=== PATIENT | female | born 1950 | race Caucasian/White ===

== ENCOUNTER 2022-01-16 01:29 | Inpatient (IN) ==
[2022-01-16] MEDS ORDERED: Ondansetron 4 MG/2 ML VIAL IVP PRN (02:49)
[2022-01-16] MEDS ORDERED: 0.9 % Sodium Chloride 1,000 ML IVC ONE ×2 (02:49→04:41)
[2022-01-16] MEDS ORDERED: Iopamidol - 370 500 ML MLS IVP ONE (04:09)
[2022-01-16 04:10] LABS: Influenza A PCR Negative (Negative); Influenza B PCR Negative (Negative); Resp. Syncytial Virus PCR Negative (Negative); SARS-CoV-2 by PCR (In House) Negative (Negative)
[2022-01-16 04:16] LABS: Basophils % 0.1 %; Hematocrit 46.4 % (35.3-44.9); Hemoglobin 15.1 g/dL (11.5-15.4); Immature Granulocytes % 0.5 % (0-4); Lymphocytes # 0.9 K/mcL (0.6-4.6); Lymphocytes % 4.9 %; Mean Corpuscular HGB Conc 32.5 g/dL (31.6-35.5); Mean Corpuscular Hemoglobin 32.5 pg (28.0-33.3); Mean Platelet Volume 9.2 fL (9.4-12.4); Monocytes # 1.4 K/mcL (0.0-1.3); Monocytes % 7.9 %; Neutrophils # 15.3 K/mcL (1.6-8.9); Platelet Count 302 K/mcL (140-400); Red Blood Count 4.64 M/mcL (3.82-4.97); Red Cell Distribution Width 13.2 % (11.5-14.5); Segmented Neutrophils % 86.6 %; White Blood Count 17.7 K/mcL (4.3-11.1)
[2022-01-16] MEDS ORDERED: Piperacillin/Tazobactam 3.375 GM in 0.9 % Sodium Chloride Mini Bag 100 ML IVPB ONE (04:50)
[2022-01-16] MEDS ORDERED: Pantoprazole 40 MG VIAL IVP ONE (04:51)
[2022-01-16 04:58] LABS: Alanine Aminotransferase 5 Units/L (7-52); Albumin 3.8 g/dL (3.5-5.7); Albumin/Globulin Ratio 1.2 (1.1-2.2); Alkaline Phosphatase 99 Units/L (34-104); Aspartate Amino Transferase 13 Units/L (13-39); BUN/Creatinine Ratio 10 (6-26); Bilirubin,Total 0.4 mg/dL (0.3-1.0); Blood Urea Nitrogen 25 mg/dL (8-23); Calcium 8.5 mg/dL (8.6-10.3); Carbon Dioxide 14 mEq/L (23-29); Chloride 106 mEq/L (98-107); Globulin 3.1 g/dL (2.4-3.5); Glucose 170 mg/dL (70-105); Magnesium 1.8 mg/dL (1.6-2.6); Osmolality,Calculated 296 (280-300); Potassium 3.5 mEq/L (3.5-5.1); Sodium 139 mEq/L (136-145); Total Protein 6.9 g/dL (6.4-8.9); Troponin I < 0.03 ng/mL (< 0.04)
[2022-01-16] MEDS ORDERED: Vancomycin Oral Soln 125 MG/2.5 ML UDC PO ONE (05:10)
[2022-01-16 05:38] LABS: Bacteria,Urine Few per hpf (None-Few); Bilirubin,Urine Small (Negative); Blood,Urine Trace (Negative); Budding Yeast,Urine Few per hpf (None Seen); Clarity,Urine Ex.Turbid (Clear); Color,Urine Yellow (Yellow); Glucose,Urine (UA) 30 mg/dL (Normal); Hyaline Casts,Urine Many per lpf (None Seen); Ketones,Urine Trace mg/dL (Negative); Leukocyte Esterase,Urine Trace (Negative); Mucus,Urine Many per lpf (None-Few); Nitrite,Urine Negative (Negative); Protein,Urine 200 mg/dL (Neg-Trace); Renal Epithelial Cells,Urine Few per hpf (None-Few); Specific Gravity,Urine 1.023 (1.010-1.025); Squamous Epithelial Cell,Urine Few per hpf (None-Few); WBC,Urine 30-50 per hpf (0-3)
[2022-01-16] MEDS ORDERED: Naloxone 0.4 MG/ML INJ IVP PRN (07:24)
[2022-01-16] MEDS ORDERED: *HR* HYDROcodone/Acet 5/325 mg TABLET PO PRN (09:20)
[2022-01-16] MEDS ORDERED: Acetaminophen 325 MG TABLET PO PRN (09:20)
[2022-01-16] MEDS ORDERED: 0.9 % Sodium Chloride w KCl 40 MEQ/1,000 ML MLS IVC SCH (09:30)
[2022-01-16] MEDS: *HR* HYDROcodone/Acet 10/325 mg TABLET PO PRN (11:56)
[2022-01-16 12:49] LABS: Hematocrit 38.6 % (35.3-44.9); Hemoglobin 12.8 g/dL (11.5-15.4)
[2022-01-16 13:05] LABS: INR 1.1; Prothrombin Time 11.8 Seconds (9.4-12.1)
[2022-01-16] MEDS: Vancomycin Oral Soln 125 MG/2.5 ML UDC PO SCH ×3 (14:52→21:09)
[2022-01-16] MEDS ORDERED: Nicotine 7 MG PATCH.TD24 TD PRN (15:20)
[2022-01-16] MEDS: Ondansetron 4 MG/2 ML VIAL IVP PRN (18:13)
[2022-01-16] MEDS: Piperacillin/Tazobactam 3.375 GM in 0.9 % Sodium Chloride Mini Bag 100 ML IVPB SCH (18:13)
[2022-01-16] MEDS: Pantoprazole 40 MG VIAL IVP SCH (18:13)
[2022-01-17 01:44] LABS: Basophils % 0.2 %; Eosinophils % 0.2 %; Immature Granulocytes % 0.5 % (0-4); Lymphocytes # 3.2 K/mcL (0.6-4.6); Lymphocytes % 20.8 %; Mean Corpuscular HGB Conc 32.6 g/dL (31.6-35.5); Mean Corpuscular Hemoglobin 32.5 pg (28.0-33.3); Mean Corpuscular Volume 99.4 fL (83.0-100.0); Mean Platelet Volume 9.3 fL (9.4-12.4); Monocytes # 1.4 K/mcL (0.0-1.3); Monocytes % 9.4 %; Neutrophils # 10.6 K/mcL (1.6-8.9); Platelet Count 243 K/mcL (140-400); Red Blood Count 3.42 M/mcL (3.82-4.97); Segmented Neutrophils % 68.9 %; White Blood Count 15.3 K/mcL (4.3-11.1)
[2022-01-17 01:58] LABS: Calcium 7.7 mg/dL (8.6-10.3); Potassium 4.1 mEq/L (3.5-5.1)
[2022-01-17 02:06] LABS: Hemoglobin 11.1 g/dL (11.5-15.4)
[2022-01-17 03:14] LABS: C.difficile Toxin A/B Gene PCR Not detected (Not detect); Campylobacter by PCR Not detected (Not detect); Enteroaggregative E.coli(EAEC) Not detected (Not detect); Enteropathogenic E.coli(EPEC) Not detected (Not detect); Enterotoxigenic E.coli (ETEC) Not detected (Not detect); Plesiomonas shigelloides PCR Not detected (Not detect); Salmonella PCR Not detected (Not detect); Vibrio PCR Not detected (Not detect); Vibrio cholerae PCR Not detected (Not detect); Yersinia enterocolitica PCR Not detected (Not detect)
[2022-01-17 03:15] LABS: Adenovirus F 40/41 PCR Not detected (Not detect); Astrovirus PCR Not detected (Not detect); Cryptosporidium by PCR Not detected (Not detect); Cyclospora cayetanensis PCR Not detected (Not detect); Entamoeba histolytica PCR Not detected (Not detect); Giardia lamblia PCR Not detected (Not detect); Norovirus GI/GII PCR Not detected (Not detect); Rotavirus A PCR Not detected (Not detect); Sapovirus PCR Not detected (Not detect); Shig/EnteroinvasiveE coli EIEC Not detected (Not detect); Shigalike tox-prod E coli STEC Not detected (Not detect)
[2022-01-17] MEDS: Piperacillin/Tazobactam 3.375 GM in 0.9 % Sodium Chloride Mini Bag 100 ML IVPB SCH ×2 (05:31→17:55)
[2022-01-17] MEDS: Pantoprazole 40 MG VIAL IVP SCH ×2 (05:31→17:54)
[2022-01-17] MEDS: *HR* HYDROcodone/Acet 10/325 mg TABLET PO PRN ×3 (05:31→20:42)
[2022-01-17] MEDS ORDERED: 0.9 % Sodium Chloride 1,000 ML IVC SCH (11:30)
[2022-01-17] MEDS: Ondansetron 4 MG/2 ML VIAL IVP PRN (13:36)
[2022-01-18 03:38] LABS: Hematocrit 33.8 % (35.3-44.9); Mean Corpuscular HGB Conc 32.5 g/dL (31.6-35.5); Mean Corpuscular Hemoglobin 32.5 pg (28.0-33.3); Mean Platelet Volume 9.3 fL (9.4-12.4); Platelet Count 231 K/mcL (140-400); Red Blood Count 3.38 M/mcL (3.82-4.97); White Blood Count 9.9 K/mcL (4.3-11.1)
[2022-01-18 03:57] LABS: Calcium 7.9 mg/dL (8.6-10.3); Potassium 3.9 mEq/L (3.5-5.1)
[2022-01-18] MEDS: *HR* HYDROcodone/Acet 10/325 mg TABLET PO PRN ×2 (04:38→12:18)
[2022-01-18] MEDS: Pantoprazole 40 MG VIAL IVP SCH (06:10)
[2022-01-18 10:42] VITALS: BP 137/79; PULSE 75; TEMP 97.6; O2SAT 97
[2022-01-18] MEDS ORDERED: Piperacillin/Tazobactam 3.375 GM in 0.9 % Sodium Chloride Mini Bag 100 ML IVPB SCH (12:00)
== END 2022-01-18 13:37 | disposition home or self-care (01) | DRG 871 ==
LOC: EMEROOARM 01:29 → SUATTDRO 13:25 → 3ANU 13:25
PROVIDERS: ADMIT Student in an Organized Health Care Education/Training Program; ATTEND Registered Nurse